=== PATIENT | female | born 1995 | race Caucasian/White ===

== ENCOUNTER 2017-02-19 13:17 | Emergency (ER) | payer MEDICAID ==
[~2017-02-19] VITALS: Ht 165.1 cm; Wt 85.0 kg
[2017-02-19] MEDS ORDERED: MORPHINE SULFATE 4 MG/ML CPJ (NOT FOR IM USE) IV STA (13:39)
[2017-02-19] MEDS ORDERED: SODIUM CHLORIDE 0.9% 1,000 ML IV ONE (13:39)
[2017-02-19] MEDS ORDERED: ONDANSETRON HCL 4MG/2ML VIAL IV STA (13:39)
[2017-02-19] MEDS ORDERED: KETOROLAC 30MG/ML VIAL IV ONE (13:45)
[2017-02-19 14:29] LABS: HCG SCREEN NEGATIVE
[2017-02-19] MEDS ORDERED: MORPHINE SULFATE 4 MG/ML CPJ (NOT FOR IM USE) IV ONE (14:45)
[2017-02-19] MEDS ORDERED: ONDANSETRON HCL 4MG/2ML VIAL IV ONE (14:45)
[2017-02-19 16:45] VITALS: BP 124/81
== END 2017-02-19 16:55 | disposition home or self-care (01) ==
LOC: ER 13:33
DX: S33.5XXA Sprain of ligaments of lumbar spine, initial encounter (principal); S20.212A Contusion of left front wall of thorax, initial encounter; V43.52XA Car driver injured in collision with other type car in traffic accident, initial encounter; Y93.89 Activity, other specified; Y92.488 Other paved roadways as the place of occurrence of the external cause
CPT/HCPCS: 71010; 72100; 72170; 73030; 84703; 96361; 96374; 96375; 96376; 99285; J1885; J2270; J2405; Z7610; J7030

== ENCOUNTER 2021-06-29 08:48 | Emergency (ER) | payer OTHER, MEDICAID ==
[~2021-06-29] VITALS: Ht 165.1 cm; Wt 104.0 kg
[2021-06-29] MEDS ORDERED: IBUPROFEN 600MG TABLET PO STA (09:18)
[2021-06-29 09:37] LABS: CLARITY URINE TURBID (CLEAR); COLOR URINE RED (YELLOW); KETONES URINE 1+ (NEGATIVE); LEUKOCYTE ESTERASE URINE 3+ (NEGATIVE); NITRITE URINE POSITIVE (NEGATIVE); OCCULT BLOOD URINE 3+ (NEGATIVE); PROTEIN URINE 2+ (NEGATIVE); SPECIFIC GRAVITY URINE 1.012 (1.005-1.030)
[2021-06-29] MEDS ORDERED: IBUP-2029 MT (09:51)
[2021-06-29] MEDS ORDERED: CEPH500C2 MT (09:51)
[2021-06-29 10:01] VITALS: BP 123/81
== END 2021-06-29 10:03 | disposition home or self-care (01) ==
LOC: ER 08:48
DX: R30.0 Dysuria (principal); N30.00 Acute cystitis without hematuria
CPT/HCPCS: 81003; 81025; 87077; 87186; 99283

== ENCOUNTER 2021-10-02 11:02 | Emergency (ER) | payer MEDICAID, OTHER ==
[~2021-10-02] VITALS: Ht 165.1 cm; Wt 108.0 kg
[~2021-10-02 11:02] MED LIST: CEPH500C2 MT; IBUP-2029 MT
[2021-10-02 11:07] VITALS: BP 129/88
[2021-10-02] MEDS ORDERED: VALA500T MT (12:56)
[2021-10-02] MEDS ORDERED: CLIN300C12 MT (12:56)
[2021-10-02] MEDS ORDERED: CEFI400C MT (12:56)
[2021-10-02 13:16] LABS: CLARITY URINE CLEAR (CLEAR); COLOR URINE YELLOW (YELLOW); KETONES URINE NEGATIVE (NEGATIVE); LEUKOCYTE ESTERASE URINE 2+ (NEGATIVE); NITRITE URINE NEGATIVE (NEGATIVE); OCCULT BLOOD URINE 1+ (NEGATIVE); PROTEIN URINE NEGATIVE (NEGATIVE); SPECIFIC GRAVITY URINE 1.022 (1.005-1.030); UROBILINOGEN URINE 0.2 E.U./dL (0.2-1.0)
[2021-10-05 19:11] LABS: NEISSERIA GONORRHOEAE NAA Negative (Negative)
== END 2021-10-02 14:10 | disposition home or self-care (01) ==
LOC: ER 11:02
DX: N75.1 Abscess of Bartholin's gland (principal); A60.04 Herpesviral vulvovaginitis
CPT/HCPCS: 56420; 81003; 81025; 87491; 87591; 99283; Z7610

== ENCOUNTER 2022-07-28 21:08 | Emergency (ER) | payer MEDICAID, OTHER ==
[~2022-07-28] VITALS: Ht 165.1 cm; Wt 108.7 kg
[~2022-07-28 21:08] MED LIST changes: +CEFI400C MT; +CLIN-194 MT; +VALA500T MT
[2022-07-29 05:27] VITALS: BP 119/80
[2022-07-29 09:48] LABS: CLARITY URINE CLOUDY (CLEAR); COLOR URINE YELLOW (YELLOW); KETONES URINE NEGATIVE (NEGATIVE); LEUKOCYTE ESTERASE URINE 1+ (NEGATIVE); NITRITE URINE NEGATIVE (NEGATIVE); OCCULT BLOOD URINE 1+ (NEGATIVE); PROTEIN URINE TRACE (NEGATIVE); SPECIFIC GRAVITY URINE 1.027 (1.005-1.030); UROBILINOGEN URINE 0.2 E.U./dL (0.2-1.0)
[2022-07-29 10:28] LABS: BASOPHILS % 0.7 % (0.0-2.0); HEMATOCRIT. 39.9 % (36.0-48.0); HEMOGLOBIN. 13.3 g/dL (12.0-16.0); LYMPHOCYTES % 25.4 % (20.0-50.0); MEAN CORPUSCULAR HEMOGLOBIN 29.6 pg (28.0-32.0); MEAN CORPUSCULAR VOLUME 88.4 fL (81.0-99.0); MEAN PLATELET VOLUME 8.2 fl (7.4-10.4); MONOCYTES % 3.2 % (2.0-8.0); NEUTROPHILS % 68.7 % (40.0-76.0); PLATELET 345 x1000/uL (130-400); RED BLOOD CELL COUNT 4.52 mill/uL (4.2-5.4); RED CELL DISTRIBUTION WIDTH 14.2 % (11.6-14.6)
[2022-07-29 10:35] LABS: CHLORIDE 104 mEq/L (98-107)
[2022-07-29 11:01] LABS: B-HCG QUANTITATIVE 2579 mIU/mL (<3)
[2022-07-29] MEDS ORDERED: NITR-87 MT (11:42)
== END 2022-07-29 11:55 | disposition home or self-care (01) ==
LOC: ER 21:08
DX: Z98.890 Other specified postprocedural states (principal); O20.0 Threatened abortion; Z3A.01 Less than 8 weeks gestation of pregnancy; O23.41 Unspecified infection of urinary tract in pregnancy, first trimester; N39.0 Urinary tract infection, site not specified
CPT/HCPCS: 36415; 76801; 80053; 81003; 81025; 84702; 85025; 86850; 86900; 99284